=== PATIENT | female | born 1975 | race Two or more races ===

== ENCOUNTER → 2024-02-29 | Outpatient (CLI) | payer OTHER, MEDICAID, SELFPAY ==
[2024-03-01 12:32] LABS: BVAG Candida Negative (Negative); Bacterial Vaginosis Markers Negative (Negative); Candida glabrata Negative (Negative); Candida krusei PCR Negative (Negative); Trichomonas Negative (Negative)
== END | disposition home or self-care (01) ==
LOC: SLDO 12:14
PROVIDERS: Referring Provider Specialist; Visit Provider Specialist
DX: N76.0 Acute vaginitis (principal); A59.01 Trichomonal vulvovaginitis; B37.89 Other sites of candidiasis
CPT/HCPCS: 81514

== ENCOUNTER → 2024-03-11 | Outpatient (CLI) | payer OTHER, MEDICAID, SELFPAY ==
--- NOTE | 2024-03-11 14:30 | XR_ITS ---
Examination: CT chest, without intravenous contrast. Sagittal and coronal 2-D reconstructions. Exam date and time: March 11, 2024 1355 hours INDICATIONS: Diagnosis malignant neoplasm uterus, chronic coughing, diagnosis soft tissue sarcoma 2014, CT chest August 16, 2023 4 mm soft pulmonary nodule left lower lobe CTDI:vol (mGy) 21.1 DLP: (mGycm) 743 Technique: Multiple 3.0 mm axial sections of the chest to been obtained. Bone and lung density settings are obtained. Sagittal and coronal 2-D reconstructions have been obtained. Low dose protocols were performed. One or more of the following dose reduction techniques were used; automated exposure control, adjustment of the mA and/or KV according to patient size, use of iterative reconstruction technique. Findings: No thoracic aortic aneurysm dilatation Pulmonary artery segments are not enlarged No paratracheal tracheobronchial or bronchopulmonary adenopathy Stable 4 mm pulmonary nodule left lower lobe No new pulmonary nodules No pneumonia or pulmonary edema or pleural disease No visualized liver or splenic lesion Gastric sutures Absent gallbladder No pancreatic or adrenal mass No hydronephrosis IMPRESSION: Stable 4 mm pulmonary nodule left lower lobe, no new pulmonary nodules
== END | disposition home or self-care (01) ==
LOC: CCTX 13:43
PROVIDERS: PCP Family Medicine; Referring Provider Nurse Practitioner Family; Visit Provider Nurse Practitioner Family
DX: R91.1 Solitary pulmonary nodule (principal); C54.9 Malignant neoplasm of corpus uteri, unspecified
CPT/HCPCS: 71250

== ENCOUNTER 2024-03-12 08:48 | Outpatient (RCR) | payer OTHER, MEDICAID, SELFPAY | END 2024-03-15 23:59 | disposition home or self-care (01) | LOC: SCTC 08:48 | PROVIDERS: PCP Family Medicine; Referring Provider Family Medicine; Visit Provider Nurse Practitioner Family | DX: R91.1 Solitary pulmonary nodule (principal); Z80.0 Family history of malignant neoplasm of digestive organs; Z80.3 Family history of malignant neoplasm of breast; Z80.49 Family history of malignant neoplasm of other genital organs; E66.9 Obesity, unspecified; Z68.41 Body mass index [BMI] 40.0-44.9, adult; M79.7 Fibromyalgia; Z85.44 Personal history of malignant neoplasm of other female genital organs | CPT/HCPCS: 99212; G0463 ==

== ENCOUNTER 2024-04-02 09:59 | Outpatient (RCR) | payer OTHER, MEDICAID, SELFPAY | END 2024-04-15 23:59 | disposition home or self-care (01) | LOC: SCTC 09:59 | PROVIDERS: PCP Family Medicine; Referring Provider Family Medicine; Visit Provider Nurse Practitioner Family | DX: Z08 Encounter for follow-up examination after completed treatment for malignant neoplasm (principal); Z85.831 Personal history of malignant neoplasm of soft tissue; Z80.0 Family history of malignant neoplasm of digestive organs; Z80.3 Family history of malignant neoplasm of breast; Z80.49 Family history of malignant neoplasm of other genital organs; R91.1 Solitary pulmonary nodule | CPT/HCPCS: 99212; G0463 ==

== ENCOUNTER → 2024-04-11 | Outpatient (CLI) | payer OTHER, MEDICAID, SELFPAY ==
--- NOTE | 2024-04-11 08:15 | XR_ITS ---
Examination: Screening digital mammography, bilateral Computer aided detection 3-D breast Tomosynthesis, bilateral Date and time of exam: April 11, 2024 0808 hours Compared to mammograms dating to May 01, 2018 Indication: Screening Technique: Nonmagnified MLO, CC views of the breasts to been obtained, reconstructed from 3-D Tomosynthesis images. R2 computer aided detection program utilized for evaluation of suspicious masses and/or abnormal calcifications. 3-D Tomosynthesis images obtained. Findings: Scattered areas of fibroglandular density. Benign calcifications. No interval suspicious masses Impression: BI-RADS category II: Benign Findings. Recommend 1 year follow-up mammogram.
== END | disposition home or self-care (01) ==
LOC: CDIM 07:50
PROVIDERS: PCP Family Medicine; Referring Provider Physician Assistant Medical; Visit Provider Physician Assistant Medical
DX: Z12.31 Encounter for screening mammogram for malignant neoplasm of breast (principal); R92.323 Mammographic fibroglandular density, bilateral breasts; R92.1 Mammographic calcification found on diagnostic imaging of breast
CPT/HCPCS: 77063; 77067

== ENCOUNTER 2024-05-21 08:12 | Outpatient (RCR) | payer OTHER, SELFPAY ==
[2024-05-21 10:15] LABS: Misc Send Out* See Sep Rpt
== END 2024-06-13 23:59 | disposition home or self-care (01) ==
LOC: SCTC 08:12
PROVIDERS: PCP Family Medicine; Referring Provider Family Medicine; Visit Provider Internal Medicine Hematology & Oncology
DX: Z76.89 Persons encountering health services in other specified circumstances (principal); Z80.3 Family history of malignant neoplasm of breast; Z80.0 Family history of malignant neoplasm of digestive organs
CPT/HCPCS: 36415

== ENCOUNTER → 2024-05-28 | Outpatient (CLI) | payer OTHER, MEDICAID, SELFPAY ==
--- NOTE | 2024-05-28 07:15 | XR_ITS ---
Examination: Ultrasound soft tissue left occipital scalp Technique: Grayscale sonographic images soft tissue scalp Exam date and time: May 28, 2024 0730 hrs. Indications: Palpable lump in the left occipital scalp note is beginning 8 months ago, 2 prior surgeries to remove the lung October and November 2023 Findings: No cystic or solid mass noted Impression: No cystic or solid mass noted Consider MRI brain scalp follow-up pre and postcontrast
== END | disposition home or self-care (01) ==
PROVIDERS: PCP Family Medicine; Referring Provider Nurse Practitioner Family; Visit Provider Nurse Practitioner Family
DX: C54.9 Malignant neoplasm of corpus uteri, unspecified (principal)
CPT/HCPCS: 76536

== ENCOUNTER 2024-06-19 09:11 | Outpatient (RCR) | payer OTHER, MEDICAID, SELFPAY | END 2024-07-14 23:59 | disposition home or self-care (01) | LOC: SCTC 09:11 | PROVIDERS: PCP Family Medicine; Referring Provider Family Medicine; Visit Provider Internal Medicine Hematology & Oncology | DX: Z08 Encounter for follow-up examination after completed treatment for malignant neoplasm (principal); Z85.831 Personal history of malignant neoplasm of soft tissue; R91.1 Solitary pulmonary nodule; R22.0 Localized swelling, mass and lump, head; Z80.0 Family history of malignant neoplasm of digestive organs; Z80.3 Family history of malignant neoplasm of breast; Z80.49 Family history of malignant neoplasm of other genital organs; Z80.7 Family history of other malignant neoplasms of lymphoid, hematopoietic and related tissues | CPT/HCPCS: 99212; G0463 ==

== ENCOUNTER → 2024-08-01 | Outpatient (CLI) | payer OTHER, MEDICAID, SELFPAY ==
--- NOTE | 2024-08-01 10:42 | XR_ITS ---
Examination: Foot, left, 3 views Technique: AP, oblique, lateral views foot, 3 views Date and time of exam: 03/03/2025 1052 hours INDICATIONS: Left foot pain 6 weeks. FINDINGS: Moderate osteopenia Early narrowing first metatarsophalangeal joint 3 mm plantar bony calcaneal spur No fracture Moderate osteoarthritis tibiotalar joint Mild osteoarthritis talonavicular joint IMPRESSION: 3 mm plantar bony calcaneal spur. Osteoarthritis as above
--- NOTE | 2024-08-01 10:42 | XR_ITS ---
EXAMINATION: Ankle, left 3 views . Technique: Ankle AP, oblique, lateral 3 views Date and time of exam: August 01, 2024 1052 hours INDICATIONS: Left ankle pain 6 weeks FINDINGS: Moderate osteopenia Moderate osteoarthritis tibiotalar joint 3 mm plantar bony calcaneal spur No fracture or ankle dislocation IMPRESSION: Moderate osteoarthritis tibiotalar joint 3 mm plantar bony calcaneal spur
== END | disposition home or self-care (01) ==
LOC: CDIM 10:24
PROVIDERS: PCP Family Medicine; Referring Provider Family Medicine; Visit Provider Family Medicine
DX: M19.072 Primary osteoarthritis, left ankle and foot (principal); M77.32 Calcaneal spur, left foot
CPT/HCPCS: 73610; 73630

== ENCOUNTER 2024-08-22 07:00 | Day surgery (SDC) | payer OTHER, MEDICAID, SELFPAY ==
[2024-08-21 11:07] VITALS: BMI 42.0
[2024-08-22 07:25] VITALS: BP 126/87; PULSE 61; RESP 18; TEMP 36.2; O2SAT 97; BMI 41.7
[2024-08-22] MEDS: SODIUM CHLORIDE 0.9% 500 ML 500 ML 20 ML IV (07:46)
[2024-08-22 08:25] VITALS: BP 125/93; PULSE 73; RESP 12; O2SAT 100
[2024-08-22] MEDS: MIDAZOLAM INJ 1 MG/ML VIAL 2 ML (ASD USE ONLY) 2 MG IV (08:25)
[2024-08-22] MEDS: fentaNYL CIT INJ 50 mCg/ML AMP 2ML (ASD USE ONLY) IV (08:25)
[2024-08-22] MEDS: DiphenhydrAMINE INJ 50 MG/ML VIAL 25 MG IV (08:25)
[2024-08-22 08:34] VITALS: BP 154/96; PULSE 69; RESP 17; TEMP 36.6; O2SAT 100
[2024-08-22 08:44] VITALS: BP 147/94; PULSE 65; RESP 19; O2SAT 100
[2024-08-22 08:54] VITALS: BP 143/89; PULSE 63; RESP 21; O2SAT 99
[2024-08-22 09:04] VITALS: BP 136/88; PULSE 64; RESP 18; TEMP 36.8; O2SAT 100
== END 2024-08-22 09:35 | disposition home or self-care (01) ==
PROVIDERS: PCP Family Medicine; Referring Provider Surgery; Visit Provider Surgery
PROC: 0DBE8ZX Excision of Large Intestine, Via Natural or Artificial Opening Endoscopic, Diagnostic (ICD-10-PCS; CPT 45380; principal; 2024-08-22 08:00)
DX: Z12.11 Encounter for screening for malignant neoplasm of colon (principal); Z80.0 Family history of malignant neoplasm of digestive organs; Z86.0100 Personal history of colon polyps, unspecified; K57.30 Diverticulosis of large intestine without perforation or abscess without bleeding
CPT/HCPCS: G0105; 81025; J1200; J2250; J3010; J7040

== ENCOUNTER → 2024-08-30 | Outpatient (CLI) | payer OTHER, MEDICAID, SELFPAY ==
--- NOTE | 2024-08-30 15:00 | XR_ITS ---
Examination: MRI of brain without intravenous contrast. MRI brain with intravenous contrast. Date and time of exam:August 30, 2024 1452 hours INDICATIONS: Left-sided headaches beginning October 2023, history to tumors left side of the head ear level behind the left ear November and December 2023 Technique: Multiple axial and sagittal images of the brain to been obtained. Siemens high-resolution 1.52 Sallie short bore scanner utilized. Sagittal sections, T1 weighted images, TR 500, TE 14, are performed. Axial sections proton-density and T2-weighted images have been obtained. Inversion recovery axial images, TR 9260, TE 111, TR 2500. Diffusion weighted images, axial sections, TR 4800, TE 128, B value 1000. Axial sections, ADC map, TR 4800, TE 128. Axial and coronal images were also obtained post 20 cc gadolinium administered intravenously. Findings:: Enlargement of the sella turcica is not present. The optic chiasm and infundibular stalk are not remarkable. There is no localized enlargement of the medulla or kory. Fourth ventricle and cerebellar tonsils appear normal in position. No subacute area of hemorrhage density is seen. Fourth ventricle is midline. Mass in the cerebellopontine angle region is not evident. 7th and 8th nerve complexes exhibit symmetry Globes are symmetrical Orbital musculature including medial lateral rectus muscles do not exhibit abnormality Effacement of the cortical sulcal markings is not identified. Mass effect upon the ventricular system is not identified. Diffusion-weighted images demonstrate no focus of restricted diffusion Contrast images demonstrate left parietal convexity enhancing tumor, 16 x 10 x 14 mm Impression: 16 x 10 x 14 mm left parietal convexity enhancing tumor, most consistent with meningioma Given the patient's history, consider CT soft tissue head face neck pre and postcontrast follow-up
== END | disposition home or self-care (01) ==
LOC: SMRI 14:21
PROVIDERS: PCP Family Medicine; Referring Provider Nurse Practitioner Family; Visit Provider Nurse Practitioner Family
DX: D49.6 Neoplasm of unspecified behavior of brain (principal); C54.9 Malignant neoplasm of corpus uteri, unspecified
CPT/HCPCS: 70553; A9579

== ENCOUNTER 2024-09-16 11:02 | Outpatient (RCR) | payer OTHER, MEDICAID, SELFPAY | END 2024-10-13 23:59 | disposition home or self-care (01) | LOC: SCTC 11:02 | PROVIDERS: PCP Family Medicine; Referring Provider Family Medicine; Visit Provider Nurse Practitioner Family | DX: Z08 Encounter for follow-up examination after completed treatment for malignant neoplasm (principal); Z85.831 Personal history of malignant neoplasm of soft tissue; D32.9 Benign neoplasm of meninges, unspecified; R22.0 Localized swelling, mass and lump, head | CPT/HCPCS: 99212; G0463 ==

== ENCOUNTER → 2024-10-01 | Outpatient (CLI) | payer OTHER, MEDICAID, SELFPAY ==
--- NOTE | 2024-10-01 11:30 | XR_ITS ---
Examination: CT chest with intravenous contrast CT abdomen with intravenous contrast CT pelvis with intravenous contrast 2-D coronal and sagittal reconstructions Time of exam: October 01, 2024 1158 hours Comparison March 11, 2024 INDICATIONS: Diagnosis malignant neoplasm uterus 2015, 4 mm pulmonary nodule left lower lobe on CT chest March 11, 2024 CTDI: vol (mGy) : 40.8 DLP: (mGycm): 1552 Technique: Multiple axial images of the chest, abdomen and pelvis with intravenous contrast, 3.0 mm slice thickness. Images obtained post intravenous injection Isovue 370 60 cc. 2-D sagittal and coronal reconstructions. Low dose protocols were performed. One or more of the following dose reduction techniques were used; automated exposure control, adjustment of the mA and/or KV according to patient size, use of iterative reconstruction technique. Findings: No thoracic aortic aneurysm dilatation Pulmonary artery opacification is reduced No paratracheal tracheobronchial or bronchopulmonary adenopathy Stable 4 mm pulmonary nodule left lower lobe No new pulmonary nodules No pneumonia or pulmonary edema No visualized liver or splenic lesion Absent gallbladder No extra hepatic biliary tract dilatation Normal pancreas normal adrenal glands No interval abdominal or pelvic lymphadenopathy No bowel obstruction 35 mm fat-containing umbilical hernia No diverticulitis Absent uterus No pelvic mass Contracted urinary bladder Prominent osteopenia IMPRESSION: Stable 4 mm pulmonary nodule left lower lobe No new pulmonary nodules No interval abdominal or pelvic lymphadenopathy
== END | disposition home or self-care (01) ==
LOC: CCTX 11:17
PROVIDERS: PCP Family Medicine; Referring Provider Nurse Practitioner Family; Visit Provider Nurse Practitioner Family
DX: R91.1 Solitary pulmonary nodule (principal); C54.9 Malignant neoplasm of corpus uteri, unspecified
CPT/HCPCS: 71260; 74177; A4649; Q9967

== ENCOUNTER 2024-10-21 11:10 | Outpatient (RCR) | payer OTHER, MEDICAID, SELFPAY | END 2024-11-13 23:59 | disposition home or self-care (01) | LOC: SCTC 11:10 | PROVIDERS: PCP Family Medicine; Referring Provider Family Medicine; Visit Provider Nurse Practitioner Family | DX: D32.9 Benign neoplasm of meninges, unspecified (principal); Z85.831 Personal history of malignant neoplasm of soft tissue | CPT/HCPCS: 99212; G0463 ==

== ENCOUNTER 2024-10-24 06:40 | Day surgery (SDC) | payer OTHER, MEDICAID, SELFPAY ==
[2024-10-23 13:33] VITALS: BMI 40.6
[2024-10-24] VITALS (10 sets, daily range): BP systolic 118–166; BP diastolic 75–104; PULSE 57–64; RESP 15–19; TEMP 36.8–36.9; O2SAT 97–99; BMI 42.2
[2024-10-24] MEDS: SODIUM CHLORIDE 0.9% 500 ML 500 ML 20 ML IV (07:26)
[2024-10-24] MEDS: fentaNYL CIT INJ 50 mCg/ML AMP 2ML IVP (07:28)
[2024-10-24] MEDS: MIDAZOLAM INJ 1 MG/ML VIAL 2 ML 2 MG IVP (07:34)
== END 2024-10-24 08:15 | disposition home or self-care (01) ==
PROVIDERS: PCP Family Medicine; Referring Provider Surgery; Visit Provider Surgery
PROC: 0DBE8ZX Excision of Large Intestine, Via Natural or Artificial Opening Endoscopic, Diagnostic (ICD-10-PCS; CPT 45380; principal; 2024-10-24 07:30)
DX: Z12.11 Encounter for screening for malignant neoplasm of colon (principal); Z80.0 Family history of malignant neoplasm of digestive organs; Z86.0100 Personal history of colon polyps, unspecified; K64.1 Second degree hemorrhoids; K57.30 Diverticulosis of large intestine without perforation or abscess without bleeding
CPT/HCPCS: G0105; 81025; J1200; J2250; J3010; J7999

== ENCOUNTER → 2024-11-26 | Outpatient (CLI) | payer OTHER, MEDICAID, SELFPAY ==
--- NOTE | 2024-11-26 09:30 | XR_ITS ---
Examination: CT brain head without contrast. CT brain head with intravenous contrast 2-D sagittal coronal reconstructions Date and time of exam:November 26, 2024 1015 hours INDICATIONS: Diagnosis malignant neoplasm uterus, palpable lump in the left ear noticed beginning one year ago, also diagnosis soft tissue sarcoma CTDI: vol (mGy):100.6 DLP: (mGycm):1975 Technique: Multiple CT axial sections of the brain have been obtained, 5 mm slice thickness, pre and post intravenous ministration 60 cc Isovue-370 2-D sagittal, coronal reconstructions have been obtained Low dose protocols were performed. One or more of the following dose reduction techniques were used; automated exposure control, adjustment of the mA and/or KV according to patient size, use of iterative reconstruction technique. Findings: No significant ventricular enlargement. Intra-axial or extra-axial hemorrhage density is not seen. No mass effect or midline shift Basal cisterns are not remarkable. Fourth ventricle is midline. Cranial vault intact. No abnormal enhancing cerebellar or cerebral lesions Impression: Negative for acute hemorrhage, mass effect or midline shift
--- NOTE | 2024-11-26 09:30 | XR_ITS ---
Examination: CT soft tissue neck, with intravenous contrast. CT soft tissue neck without intravenous contrast 2-D coronal reconstructions. 2-D sagittal reconstructions. Date and time of exam :November 26, 2024 1015 hours INDICATIONS: Diagnosis malignant neoplasm uterus, patient states palpable lump behind the left ear one year, diagnosis soft tissue sarcoma. CTDI: vol (mGy):41 DLP: (mGycm):992 Technique: 1.25 mm axial sections of the neck of the obtained, pre and post intravenous ministration 60 cc Isovue-370 Coronal and sagittal reconstructions have been obtained. Low dose protocols were performed. One or more of the following dose reduction techniques were used; automated exposure control, adjustment of the mA and/or KV according to patient size, use of iterative reconstruction technique. Findings: Symmetrical optic globes Maxillary antra are clear. Symmetrical nasopharynx oropharynx Symmetrical parotid glands No pathologic cervical lymphadenopathy The larynx appears normal Thyroid lobes are not enlarged The osseous structures are intact IMPRESSION: No pathologic lymphadenopathy Recommend follow-up ultrasound soft tissue at the area concern posterior to the left ear
== END | disposition home or self-care (01) ==
LOC: CCTX 09:17
PROVIDERS: PCP Family Medicine; Referring Provider Nurse Practitioner Family; Visit Provider Nurse Practitioner Family
DX: H93.8X2 Other specified disorders of left ear (principal); R22.0 Localized swelling, mass and lump, head; C54.9 Malignant neoplasm of corpus uteri, unspecified
CPT/HCPCS: 70470; 70492; A4649; Q9967

== ENCOUNTER → 2024-12-03 | Outpatient (CLI) | payer OTHER, MEDICAID, SELFPAY ==
--- NOTE | 2024-12-03 09:00 | XR_ITS ---
Examination: Upper GI series with KUB Esophagram standard Fluoroscopy AP spot fluoroscopic films of the esophagus and stomach Date and time: December 03, 2024 0848 hours INDICATIONS: Heartburn epigastric pain abdominal pain beginning 6 months ago TECHNIQUE AND FINDINGS: Package Center Supervisor AP supine abdomen nonobstructive bowel gas pattern Patient swallowed thin barium with 18 spot fluoroscopic films of the esophagus and stomach Primary peristaltic esophageal waves Secondary tertiary esophageal contractions Moderate intermittent gastroesophageal reflux Narrowing at the gastroesophageal junction 30% Moderate retrocardiac gastric hernia No gastric mass deformity or ulceration Duodenal bulb expands symmetrically no duodenal ulcer IMPRESSION: Esophageal dysmotility Moderate intermittent gastroesophageal reflux. 30% stenosis at the gastroesophageal junction, likely reflux esophagitis. No gastric mass or deformity Negative for duodenitis Fluoroscopy 0.22 minute 18 spot fluoroscopic films of these esophagus and stomach
== END | disposition home or self-care (01) ==
PROVIDERS: PCP Family Medicine; Referring Provider Family Medicine; Visit Provider Family Medicine
DX: K21.9 Gastro-esophageal reflux disease without esophagitis (principal); K22.2 Esophageal obstruction; Z90.3 Acquired absence of stomach [part of]
CPT/HCPCS: 74240; A4649

== ENCOUNTER → 2024-12-10 | Outpatient (CLI) | payer OTHER, MEDICAID, SELFPAY ==
--- NOTE | 2024-12-10 12:20 | XR_ITS ---
Examination: Bone densitometry Date and time of exam:December 10, 2024, 1245 hours INDICATIONS: Hysterectomy age 47 calcium for years vitamin D 6 years, family history mother osteoporosis, personal history rheumatoid arthritis Technique: Lumbar spine and hip total bone mineralization values of an calculated. Peak reference and age match control results have been displayed. Findings: Lumbar spine total bone mineralization is1.044 gm/cm2. This is 0.0 standard deviations at peak reference. This is 0.8 standard deviations above age-matched controls. Hip total bone mineralization is 0.915 gm/cm2 This is 0.4 standard deviations below peak reference. This is 0.1 standard deviations above age-matched controls Impression: There is normal mineralization based on lumbar spine measurements. There is osteopenia based on hip measurements Lumbar mineralization is decreased 2.9% compared with October 06, 2021. Hip mineralization is decreased 6.2% compared with October 06, 2021.
== END | disposition home or self-care (01) ==
PROVIDERS: PCP Family Medicine; Referring Provider Nurse Practitioner Family; Visit Provider Nurse Practitioner Family
DX: M85.89 Other specified disorders of bone density and structure, multiple sites (principal); C54.9 Malignant neoplasm of corpus uteri, unspecified
CPT/HCPCS: 77080

== ENCOUNTER 2024-12-18 11:23 | Outpatient (RCR) | payer OTHER, MEDICAID, SELFPAY | END 2025-01-13 23:59 | disposition home or self-care (01) | LOC: SCTC 11:23 | PROVIDERS: PCP Family Medicine; Referring Provider Family Medicine; Visit Provider Nurse Practitioner Family | DX: Z09 Encounter for follow-up examination after completed treatment for conditions other than malignant neoplasm (principal); Z86.011 Personal history of benign neoplasm of the brain; M85.80 Other specified disorders of bone density and structure, unspecified site | CPT/HCPCS: 99212; G0463 ==

== ENCOUNTER → 2025-01-15 | Outpatient (CLI) | payer OTHER, MEDICAID, SELFPAY ==
--- NOTE | 2025-01-15 10:56 | XR_ITS ---
Examination: Foot, right, 3 views Technique: AP, oblique, lateral views foot, 3 views Date and time of exam: January 15, 2025, 1103 hours INDICATIONS: Right foot pain months. FINDINGS: Moderate osteopenia. Early osteoarthritis first metatarsophalangeal joint and first tarsometatarsal joint No fractures No cortical bone destruction 4 mm plantar bony calcaneal spur Also early osteoarthritis tibiotalar joint IMPRESSION: Early osteoarthritis as above
== END | disposition home or self-care (01) ==
LOC: CDIM 10:43
PROVIDERS: PCP Family Medicine; Referring Provider Nurse Practitioner; Visit Provider Nurse Practitioner
DX: M19.071 Primary osteoarthritis, right ankle and foot (principal)
CPT/HCPCS: 73630

== ENCOUNTER → 2025-02-18 | Outpatient (CLI) | payer OTHER, MEDICAID, SELFPAY ==
--- NOTE | 2025-02-18 09:15 | XR_ITS ---
EXAMINATION: Ultrasound soft tissue head and neck TECHNIQUE: Grayscale sonographic soft tissue images of the posterior neck Date and time: February 18, 2025, 0933 hours INDICATIONS: History masses posterior to the left ear removed September 2023 FINDINGS: 6 x 4 x 5 mm isoechoic to hyperechoic nodule in the soft tissue posterior to the left ear most consistent with lipoma IMPRESSION: Probable small benign lipoma in the soft tissue at the area of concern, suggest continued 6-month follow-up ultrasound soft tissue neck
== END | disposition home or self-care (01) ==
LOC: CDIM 09:05
PROVIDERS: PCP Family Medicine; Referring Provider Nurse Practitioner Family; Visit Provider Nurse Practitioner Family
DX: C54.9 Malignant neoplasm of corpus uteri, unspecified (principal)
CPT/HCPCS: 76536

== ENCOUNTER 2025-02-19 15:12 | Outpatient (RCR) | payer OTHER, MEDICAID, SELFPAY | END 2025-03-15 23:59 | disposition home or self-care (01) | LOC: SCTC 15:12 | PROVIDERS: PCP Family Medicine; Referring Provider Family Medicine; Visit Provider Nurse Practitioner Family | DX: Z08 Encounter for follow-up examination after completed treatment for malignant neoplasm (principal); Z85.831 Personal history of malignant neoplasm of soft tissue; M85.80 Other specified disorders of bone density and structure, unspecified site | CPT/HCPCS: 99212; G0463 ==